=== PATIENT | female | born 1940 ===

== ENCOUNTER 2021-02-21 06:00 | Day surgery (SDC) | payer OTHER ==
[~2021-02-21 06:00] MED LIST: AMLODI PO; ATORVASTATIN CA80 MG PO; EVISTA60 MG PO; GLIMEPIRIDE2 M1 PO; HORIZANT600 MG PO; HYDROCHLOROTHIA25 MG PO; JARDIANCE10 MG PO; METOPROLOL SUCC50 MG PO
[2021-02-21] MEDS ORDERED: ULTRACET PO (12:28)
== END 2021-02-21 14:30 | disposition home or self-care (01) ==
LOC: CIR.AMB 06:00
PROVIDERS: ATTEND Surgery
DX: C88.4 Extranodal marginal zone B-cell lymphoma of mucosa-associated lymphoid tissue [MALT-lymphoma] (principal); Z20.822 Contact with and (suspected) exposure to COVID-19